=== PATIENT | female | born 1975 | race Two or more races ===

== ENCOUNTER 2016-06-03 18:58 | Emergency (ER) | payer MEDICAID, OTHER, SELFPAY ==
[~2016-06-03] VITALS: Ht 154.9 cm; Wt 61.8 kg
[2016-06-03] MEDS ORDERED: AMOX-291 PO (20:04)
[2016-06-03] MEDS ORDERED: SODIUM CHLORIDE FLUSH 10ML SYR IVF ONE (21:00)
[2016-06-03] MEDS ORDERED: SODIUM CHLORIDE 0.9% 1,000ML IVBOLUS ONE (21:00)
[2016-06-03] MEDS ORDERED: KETOROLAC 30 MG/1 ML IVPush ONE (21:00)
[2016-06-03] MEDS ORDERED: KETOROLAC 30 MG/1 ML ONE (21:10)
[2016-06-03 21:37] LABS: HEMOGLOBIN 13.9 g/dL (11.7-16.4)
[2016-06-03 21:50] LABS: BLOOD UREA NITROGEN 8 mg/dL (7-18)
[2016-06-03 22:57] VITALS: BP 125/85
== END 2016-06-03 23:50 | disposition home or self-care (01) ==
LOC: ED 20:59
DX: G44.209 Tension-type headache, unspecified, not intractable (principal)
CPT/HCPCS: 36415; 70450; 80048; 82040; 85025; 93005; 96361; 96374; 99285; J1885; J7030

== ENCOUNTER 2017-04-23 18:27 | Emergency (ER) | payer MEDICAID ==
[~2017-04-23] VITALS: Ht 154.9 cm; Wt 62.1 kg
[~2017-04-23 18:27] MED LIST: AMOX-291 PO
[2017-04-23] MEDS ORDERED: ASPIRIN 81 MG TABLET CHEW ONE (18:47)
[2017-04-23] MEDS ORDERED: ASPIRIN 81 MG TABLET CHEW PO ONE (19:00)
[2017-04-23] MEDS ORDERED: SODIUM CHLORIDE FLUSH 10ML SYR IVF ONE (19:00)
[2017-04-23 19:11] LABS: BASOPHILS # (AUTO) 0.07 x10^3/uL (0-0.1); BASOPHILS % (AUTO) 1 % (0-1); EOSINOPHILS # (AUTO) 0.08 x10^3/uL (0-0.4); EOSINOPHILS % (AUTO) 1 % (1-7); LYMPHOCYTES # (AUTO) 2.41 x10^3/uL (1-3.4); LYMPHOCYTES % (AUTO) 30 % (22-44); MD NO; MEAN CORPUSCULAR HEMOGLOBIN 32.6 pg (27.0-34.8); MEAN CORPUSCULAR HGB CONC 34.4 g/dL (32.4-35.8); MEAN CORPUSCULAR VOLUME 94.8 fL (80-100); MEAN PLATELET VOLUME 8.5 fL (7.4-10.4); MONOCYTES # (AUTO) 0.63 x10^3/uL (0.2-0.8); MONOCYTES % (AUTO) 8 % (2-9); NEUTROPHILS # (AUTO) 4.99 x10^3/uL (1.8-6.8); NEUTROPHILS % (AUTO) 61 % (42-75); PLATELET COUNT 329 x10^3/uL (130-400)
[2017-04-23 19:26] LABS: ALANINE AMINOTRANSFERASE 23 U/L (12-78); ALBUMIN 3.9 g/dL (3.4-5.0); ANION GAP 9 mmol/L (5-15); CALCIUM 8.4 mg/dL (8.5-10.1); CHLORIDE 106 mmol/L (98-107)
[2017-04-23 19:31] LABS: ALKALINE PHOSPHATASE 121 U/L (45-117); CREATININE 0.71 mg/dL (0.55-1.02); TOTAL PROTEIN 7.9 g/dL (6.4-8.2); TROPONIN I < 0.015 ng/mL (0.000-0.045)
[2017-04-23 21:35] VITALS: BP 146/89
== END 2017-04-23 21:38 | disposition home or self-care (01) ==
LOC: ED 21:32
DX: R07.2 Precordial pain (principal); R06.00 Dyspnea, unspecified
CPT/HCPCS: 36415; 71045; 80053; 84484; 84703; 85025; 93005; 99285

== ENCOUNTER 2017-05-29 15:01 | Emergency (ER) | payer MEDICAID ==
[~2017-05-29] VITALS: Ht 154.9 cm; Wt 60.8 kg
[2017-05-29 15:57] LABS: BASOPHILS # (AUTO) 0.05 x10^3/uL (0-0.1); BASOPHILS % (AUTO) 1 % (0-1); EOSINOPHILS # (AUTO) 0.09 x10^3/uL (0-0.4); EOSINOPHILS % (AUTO) 1 % (1-7); LYMPHOCYTES # (AUTO) 1.79 x10^3/uL (1-3.4); LYMPHOCYTES % (AUTO) 26 % (22-44); MD NO; MEAN CORPUSCULAR HEMOGLOBIN 31.7 pg (27.0-34.8); MEAN CORPUSCULAR HGB CONC 34.2 g/dL (32.4-35.8); MEAN CORPUSCULAR VOLUME 92.8 fL (80-100); MEAN PLATELET VOLUME 8.9 fL (7.4-10.4); MONOCYTES # (AUTO) 0.43 x10^3/uL (0.2-0.8); MONOCYTES % (AUTO) 6 % (2-9); NEUTROPHILS # (AUTO) 4.66 x10^3/uL (1.8-6.8); NEUTROPHILS % (AUTO) 66 % (42-75); PLATELET COUNT 311 x10^3/uL (130-400); RED BLOOD COUNT 4.45 x10^6/uL (3.82-5.3); RED CELL DISTRIBUTION WIDTH 12.5 % (9.6-15.2)
[2017-05-29 16:00] LABS: ANION GAP 6 mmol/L (5-15); CALCIUM 8.4 mg/dL (8.5-10.1); CHLORIDE 108 mmol/L (98-107); CREATININE 0.73 mg/dL (0.55-1.02)
[2017-05-29] MEDS ORDERED: MECLIZINE CHEWABLE 25 MG TAB ONE (17:40)
[2017-05-29] MEDS ORDERED: LORazepam 1MG TABLET ONE (17:41)
[2017-05-29] MEDS ORDERED: HYDROcodone/APAP 5/325 TABLET ONE (17:41)
[2017-05-29] MEDS ORDERED: PSEUDOEPHEDRINE 30 MG TABLET PO PRN (18:00)
[2017-05-29] MEDS ORDERED: MECLIZINE CHEWABLE 25 MG TAB PO ONE (18:00)
[2017-05-29] MEDS ORDERED: HYDROcodone/APAP 5/325 TABLET PO ONE (18:00)
[2017-05-29] MEDS ORDERED: LORazepam 1MG TABLET PO ONE (18:00)
[2017-05-29] MEDS ORDERED: CEFDINIR 300 MG CAPSULE ONE (18:17)
[2017-05-29 18:21] VITALS: BP 132/90
[2017-05-29] MEDS ORDERED: DEXAMETHASONE 4 MG TABLET ONE (18:23)
[2017-05-29] MEDS ORDERED: DEXAMETHASONE 4 MG TABLET PO ONE (18:30)
[2017-05-29] MEDS ORDERED: CEFDINIR 300 MG CAPSULE PO SCH (18:30)
== END 2017-05-29 19:01 | disposition home or self-care (01) ==
LOC: ED 18:55
DX: J01.00 Acute maxillary sinusitis, unspecified (principal); H93.11 Tinnitus, right ear
CPT/HCPCS: 36415; 70450; 80048; 82040; 85025; 93005; 99285

== ENCOUNTER 2019-08-27 21:40 | Emergency (ER) | payer MEDICAID ==
[~2019-08-27] VITALS: Ht 154.9 cm; Wt 63.6 kg
[2019-08-27 21:45] VITALS: BP 147/91
--- NOTE | 2019-08-27 22:33 | NUR ---
COVID SWAB OBTAINED AND XRAY TO BEDSIDE.
== END 2019-08-27 23:32 | disposition home or self-care (01) ==
LOC: ED 23:01
DX: J00 Acute nasopharyngitis [common cold] (principal); Z20.828 Contact with and (suspected) exposure to other viral communicable diseases; R51 Headache; R42 Dizziness and giddiness; R43.8 Other disturbances of smell and taste; K21.9 Gastro-esophageal reflux disease without esophagitis
CPT/HCPCS: 71045; 93005; 99285; U0001